=== PATIENT | female | born 2000 | race Caucasian/White ===

== ENCOUNTER 2021-09-04 02:07 | Emergency (ER) | payer SELFPAY ==
[2021-09-04] MEDS ORDERED: IBUPROFEN 400 MG TAB PO ONE (02:12)
[2021-09-04 03:47] VITALS: BP 144/82
[2021-09-04] MEDS ORDERED: AMOXICILLIN/K CLAV 875/125MG TAB PO ONE (04:46)
[2021-09-04] MEDS ORDERED: LIDOCAINE VISCOUS 2% 15 ML ORAL LIQD PO ONE (04:46)
[2021-09-04] MEDS ORDERED: ACETAMINOPHEN 500 MG TAB PO ONE (04:46)
[2021-09-04] MEDS ORDERED: dexAMETHasone 20 MG/5 ML VIAL IM ONE (04:46)
--- NOTE | 2021-09-04 05:35 | Emergency Department Report ---
ED General Adult HPI - General Chief complaint: Fever Stated complaint: SORE THROAT Source: patient Mode of arrival: Ambulatory Limitations: No Limitations - History of Present Illness Initial comments: Patient is a 20-year-old female with no past medical history presents to the ED with complaint of acute onset persistent sore throat, dysphagia with a white exudate for the last 5 days, worse in the last 2 days. Patient states that she also has had persistent diffuse body aches and pains with chills and headache as well as fever, nasal and sinus congestion for the last 2 days. Patient states that no one else at home is had similar symptoms. Patient denies dizziness, syncope, chest pain or shortness of breath, nausea and vomiting, diarrhea, palpitations, change in vision or neck pain. MD Complaint: Sore throat, dysphagia, fever and chills -: Sudden, days(s) (5) Location: mouth Radiation: non-radiation Severity scale (0 -10): 6 Quality: aching, sharp Consistency: constant Improves with: none Worsens with: eating Associated Symptoms: denies other symptoms, fever/chills, headaches, loss of appetite, malaise. denies: confusion, chest pain, cough, diaphoresis, nausea/vomiting, rash, seizure, shortness of breath, syncope, weakness Treatments Prior to Arrival: none - Related Data Previous Rx's Medication Instructions Recorded Last Taken Type Ibuprofen [Motrin] 800 mg PO Q8HR PRN #30 tablet 09/04/21 Unknown Rx Lidocaine Viscous 2% 15 ml PO Q6H PRN #120 ml 09/04/21 Unknown Rx Ondansetron [Zofran Odt] 4 mg PO Q8HR PRN #15 tab.rapdis 09/04/21 Unknown Rx Penicillin V Potassium 500 mg PO Q6H #40 tab 09/04/21 Unknown Rx predniSONE [Deltasone] 40 mg PO QDAY #10 tab 09/04/21 Unknown Rx Allergies Allergy/AdvReac Type Severity Reaction Status Date / Time No Known Allergies Allergy Verified 09/04/21 02:12 ED Review of Systems ROS: Stated complaint: SORE THROAT Other details as noted in HPI Constitutional: chills, fever, malaise Eyes: denies: eye pain, eye discharge, vision change ENT: throat pain, congestion. denies: ear pain Respiratory: cough. denies: shortness of breath, wheezing Cardiovascular: denies: chest pain, palpitations Endocrine: no symptoms reported Gastrointestinal: denies: abdominal pain, nausea, diarrhea Genitourinary: denies: urgency, dysuria, discharge Musculoskeletal: denies: back pain, joint swelling, arthralgia Skin: denies: rash, lesions Neurological: headache. denies: weakness, paresthesias Psychiatric: denies: anxiety, depression Hematological/Lymphatic: denies: easy bleeding, easy bruising ED Past Medical Hx - Medications Home Medications: Home Medications Medication Instructions Recorded Confirmed Last Taken Type Ibuprofen [Motrin] 800 mg PO Q8HR PRN #30 tablet 09/04/21 Unknown Rx Lidocaine Viscous 2% 15 ml PO Q6H PRN #120 ml 09/04/21 Unknown Rx Ondansetron [Zofran Odt] 4 mg PO Q8HR PRN #15 tab.rapdis 09/04/21 Unknown Rx Penicillin V Potassium 500 mg PO Q6H #40 tab 09/04/21 Unknown Rx predniSONE [Deltasone] 40 mg PO QDAY #10 tab 09/04/21 Unknown Rx ED Physical Exam - General Limitations: No Limitations General appearance: alert, in no apparent distress - Head Head exam: Present: atraumatic, normocephalic, normal inspection - Eye Eye exam: Present: normal appearance, PERRL, EOMI Pupils: Present: normal accommodation - ENT ENT exam: Present: mucous membranes moist, TM's normal bilaterally, normal external ear exam, other (Grossly congested nasal passages; erythematous mildly swollen oropharynx and tonsils with thick white exudates; uvula is midline and no sign of peritonsillar abscess) - Neck Neck exam: Present: normal inspection, full ROM, lymphadenopathy (Palpable anterior cervical lymphadenopathy) - Respiratory Respiratory exam: Present: normal lung sounds bilaterally. Absent: respiratory distress, wheezes, rales, rhonchi, chest wall tenderness, accessory muscle use, decreased breath sounds - Cardiovascular Cardiovascular Exam: Present: normal rhythm, tachycardia, normal heart sounds. Absent: systolic murmur, diastolic murmur, rubs, gallop - GI/Abdominal GI/Abdominal exam: Present: soft, normal bowel sounds. Absent: tenderness, guarding, rebound, hyperactive bowel sounds, hypoactive bowel sounds, organomegaly - Extremities Exam Extremities exam: Present: normal inspection, full ROM, normal capillary refill - Back Exam Back exam: Present: normal inspection, full ROM. Absent: tenderness, CVA tenderness (R), CVA tenderness (L), muscle spasm, paraspinal tenderness - Neurological Exam Neurological exam: Present: alert, oriented X3, CN II-XII intact, normal gait, reflexes normal - Psychiatric Psychiatric exam: Present: normal affect, normal mood - Skin Skin exam: Present: warm, dry, intact, normal color. Absent: rash ED Course Vital Signs 09/04/21 09/04/21 09/04/21 02:11 03:46 05:15 Temperature 101.3 F H 98.1 F Pulse Rate 145 H 111 H Respiratory 20 18 14 Rate Blood Pressure 135/79 144/82 O2 Sat by Pulse 96 99 Oximetry 09/04/21 05:43 Temperature Pulse Rate 82 Respiratory Rate Blood Pressure O2 Sat by Pulse 100 Oximetry ED Medical Decision Making - Medical Decision Making This is a 20-year-old female with no past medical history presents to the ED with complaint of acute onset persistent sore throat, dysphagia with a white exudate for the last 5 days, worse in the last 2 days. Patient states that she also has had persistent diffuse body aches and pains with chills and headache as well as fever, nasal and sinus congestion for the last 2 days. Patient states that no one else at home is had similar symptoms. In the ED, patient is alert and oriented x3 and is not in any distress. Patient is tachycardic and febrile in triage. Patient was treated in the ED for fever, and also given initial oral antibiotics in the ED based on the history and physical exam findings consistent with bacterial pharyngitis or tonsillitis. On reevaluation, patient's fever resolved with medication. Patient pain also resolved and patient will discharge home on pain medications and antibiotics and advised to follow-up with her primary care physician in 7 to 10 days for reevaluation or return to the ED immediately if symptoms get worse. - Differential Diagnosis Bacterial tonsillitis; strep pharyngitis; viral tonsillitis; mononucleosis Critical care attestation.: If time is entered above; I have spent that time in minutes in the direct care of this critically ill patient, excluding procedure time. ED Disposition Clinical Impression: Acute bacterial tonsillitis, Acute streptococcal pharyngitis, Fever and chills, Acute upper respiratory infection Disposition: HOME / SELF CARE / HOMELESS Is pt being admited?: No Does the pt Need Aspirin: No Condition: Stable Instructions: Tonsillitis, [id number], Strep Throat, Adult, [id number], Upper Respiratory Infection, Adult, [id number], Pharyngitis, [id number], Fever, Adult, [id number] Additional Instructions: Your symptoms are likely due to acute bacterial tonsillitis. Prescriptions: predniSONE [Deltasone] 40 mg PO QDAY #10 tab Lidocaine Viscous 2% 15 ml PO Q6H PRN #120 ml PRN Reason: Sore Throat Ibuprofen [Motrin] 800 mg PO Q8HR PRN #30 tablet PRN Reason: Pain , Severe (7-10) Penicillin V Potassium 500 mg PO Q6H #40 tab Ondansetron [Zofran Odt] 4 mg PO Q8HR PRN #15 tab.rapdis PRN Reason: Nausea Referrals: [facility] [Provider Group] - 7-10 days Time of Disposition: 05:40 Print Language: OCCITAN
== END 2021-09-04 06:34 | disposition home or self-care (01) ==
LOC: ED 02:07
DX: J06.9 Acute upper respiratory infection, unspecified (principal); J02.9 Acute pharyngitis, unspecified; B95.4 Other streptococcus as the cause of diseases classified elsewhere
CPT/HCPCS: 96372; 99282; J1100